=== PATIENT | female | born 1950 | race Caucasian/White ===

== ENCOUNTER 2020-03-11 07:00 | Day surgery (SDC) | payer MEDICARE, OTHER ==
[~2020-03-11 07:00] MED LIST: LACTATED RINGERS 1,000 ML ONE
[2020-03-11] MEDS ORDERED: LACTATED RINGERS 1,000 ML IVS ONE (07:35)
--- NOTE | 2020-03-11 09:09 | OP ---
DATE OF PROCEDURE: 03/11/20 PREOPERATIVE DIAGNOSIS: 1. History of colon cancer. POSTOPERATIVE DIAGNOSIS: 1. Colonic polyp. PROCEDURE: 1. Colonoscopy with polypectomy at distal ascending colon. SURGEON: Mich Bright MD ANESTHESIA: General. FINDINGS: The anastomosis was identified and looked good. There was a single polyp identified in the ascending colon that was approximately 3.5 mm. It was completely taken with the snare. Otherwise, everything was normal. COMPLICATIONS: None. PLAN: Discharge. INDICATION: This is a one-year followup colonoscopy after diagnosis and treatment for colon cancer. She had an adequate prep. PROCEDURE: She was brought to the Endoscopy Suite in lateral position. General anesthesia was induced. Digital rectal exam was normal but for some non- thrombosed external hemorrhoids. The colonoscope was inserted and passed all the way to the cecum. Upon withdrawal, a single polyp was identified. It was on a rather wide-based stalk, but only about 3.5 to 4 mm. The snare was used and it was completely excised and retrieved successfully. Upon careful withdrawal, no additional polyps were seen. The anastomosis was identified by a small pouch and it looked fine. The patient tolerated the procedure and was taken to Recovery to be discharged. #[id number] cc: Dorothy Grant, Nurse Practitioner MTDD
[2020-03-11 09:55] VITALS: BP 165/81; TEMP 97; O2SAT 98
== END 2020-03-11 09:50 | disposition home or self-care (01) ==
LOC: AMB 07:00
PROVIDERS: ATTEND Surgery
DX: Z12.11 Encounter for screening for malignant neoplasm of colon (principal); D12.2 Benign neoplasm of ascending colon; K64.4 Residual hemorrhoidal skin tags; K21.9 Gastro-esophageal reflux disease without esophagitis; Z85.038 Personal history of other malignant neoplasm of large intestine; Z90.710 Acquired absence of both cervix and uterus; Z87.891 Personal history of nicotine dependence; Z88.5 Allergy status to narcotic agent; Z88.0 Allergy status to penicillin; Z79.899 Other long term (current) drug therapy
CPT/HCPCS: 00812; 45385; J7120